=== PATIENT | female | born 1985 | race Caucasian/White ===

== ENCOUNTER 2016-10-06 16:49 | Emergency (ER) | payer BC, OTHER ==
[~2016-10-06] VITALS: Ht 165.1 cm; Wt 90.0 kg
[2016-10-06 16:53] VITALS: Ht 165.1 cm; Wt 90.0 kg
[2016-10-06] MEDS ORDERED: KETOROLAC 30 MG INJ IM STA (17:18)
[2016-10-06] MEDS ORDERED: DIAZEPAM 2 MG TAB PO ONE (17:30)
--- NOTE | 2016-10-06 17:34 | ERD ---
ER Documentation Chief Complaint Date/Time DATE: 10/06/16 TIME: 17:33 Chief Complaint Complains of lower back pain after a fall HPI Patient is a 31 year old female here with boyfriend who presents to the ED with low back pain x 1 day after sustaining a fall. She states that she was on the swing and fell and landed on her back. Denies hitting her head or blacking out or losing conscious. Denies vomiting or diarrhea. Denies fever chills. Denies bowel or bladder incontinence. States that the pain is located on the left side of her back and does not radiate. She is able to ambulate but has pain when she bends. No other complaints and has not taken any medication. ROS All systems reviewed and are negative except as per history of present illness. Medications Home Meds Active Scripts Orphenadrine Citrate (Norflex) 100 Mg Tablet.sa, 100 MG PO BID for 10 Days, TAB.SA Prov:NURA HARGROVE PA-C 10/06/16 Naproxen* (Naprosyn*) 500 Mg Tablet, 500 MG PO BID Y for PAIN AND/OR INFLAMMATION, #30 TAB Prov:NURA HARGROVE PA-C 10/06/16 Allergies Allergies: Coded Allergies: No Known Allergies (Verified Allergy, Unknown, 10/06/16) PMhx/Soc Medical and Surgical Hx: pt denies Medical Hx, pt denies Surgical Hx History of Surgery: No Anesthesia Reaction: No Hx Neurological Disorder: No Hx Respiratory Disorders: No Hx Cardiac Disorders: No Hx Psychiatric Problems: No Hx Miscellaneous Medical Probl: No Hx Alcohol Use: No Hx Substance Use: No Hx Tobacco Use: No Smoking Status: Never smoker Physical Exam Vitals Vital Signs Date Time Temp Pulse Resp B/P Pulse Ox O2 Delivery O2 Flow Rate FiO2 10/06/16 16:53 98.2 89 20 114/74 98 Physical Exam GENERAL: Well-developed, well-nourished female. Appears in no acute distress. HEAD: Normocephalic, atraumatic. EYES: Pupils are equally reactive bilaterally. EOMs grossly intact. No conjunctival erythema. ENT: Moist mucous membranes. No uvula deviation. No kissing tonsils. No exudates. NECK: Supple. No lymphadenopathy or thyromegaly. No meningismus. negative kernig. negative brudinski. LUNG: Clear to auscultation bilaterally. No rhonchi, wheezing, rales or coarse breath sounds. HEART: Regular rate and rhythm. No murmurs, rubs or gallops. ABDOMEN: No scars, ecchymosis or rashes noted. Soft, nontender, and nondistended. Positive bowel sounds in all four quadrants. No rebound tenderness , no guarding. (-) McBurneys point tenderness. No CVA tenderness. BACK: No midline tenderness. No spinal tenderness. Of her lower back with no erythema or ecchymosis or step-offs or deformities. No masses Extremities: Equal pulses bilaterally. No peripheral clubbing, cyanosis or edema. No unilateral leg swelling. NEUROLOGIC: Alert and oriented. Moving all four extremities. 5/5 strength in all extremities. Normal speech. unSteady gait. SKIN: Normal color. Warm and dry. No rashes or lesions. Capillary refill < 2 seconds Results 24 hrs Current Medications Medications (Trade) Dose Ordered Sig/Merrick Route PRN Reason Start Time Stop Time Status Last Admin Dose Admin Ketorolac Tromethamine (Toradol) 30 mg ONCE STAT IM 10/06/16 17:18 10/06/16 17:22 DC 10/06/16 17:36 Diazepam (Valium) 2 mg ONCE ONCE PO 10/06/16 17:30 10/06/16 17:31 DC 10/06/16 17:49 Procedures/MDM ER COURSE: I kept the patient and/or family informed of laboratory and diagnostic imaging results throughout the emergency room course. IMAGING STUDIES [place] [address] Radiology Main Line: [phone] DIAGNOSTIC IMAGING REPORT Patient: LEIGHA HARRISON : 1985 Age: 31 Sex: F MR #: [id number] DOS: 10/06/16 1718 Ordering MD: NURA HARGROVE PA-C Location: [facility] Room/Bed: PROCEDURE: XR Lumbar Spine. CLINICAL INDICATION: back pain s/p fall TECHNIQUE: AP and lateral view of the lumbar spine were obtained. COMPARISON: No prior studies are available for comparison. FINDINGS: There is normal vertebral mineralization. No fracture or subluxation is seen. There is disk space narrowing at L5-S1 with small anterior osteophytes. The posterior elements are unremarkable. The soft tissues appear normal. IMPRESSION: 1. No acute abnormalities are clearly seen. 2. Disk space narrowing at L5-S1 with small anterior osteophytes. RPTAT:AAJJ Kevin Montoya Physician Date Time Electronically viewed and signed by Kevin Motnoya Physician on 10/06/2016 18: 12 MC/ CC: NURA HARGROVE PA-C MEDICATIONS Toradol 30 mg IM. Valium 2 mg p.o. Tolerated well with no adverse reactions improvement in symptoms per MEDICAL DECISION MAKING: This is a 31-year-old female who presents with left back pain after sustaining an injury where she fell off of the swing. Vital signs were reviewed. Patient is afebrile. Patient is not hypoxic. Patient's x-rays of by radiologist unremarkable for fracture dislocation. I have low suspicion for compression fracture. Patient has muscle strain versus muscle sprain versus contusion. Low suspicion for cauda equine syndrome, spinal epidural hematoma, spinal epidural abscess, osteomyelitis, fracture, aortic dissection, AAA, pyelonephritis, nephrolithiasis, septic stone, obstructed stone. DISCHARGE: At this time, patient is stable for discharge and outpatient management with no new complaints during the ER course. Patient was sent home with Naprosyn and Norflex copy of imaging report and a note for work. Patient will be discharged home with instructions to recheck for new or worsening symptoms such as fever, nausea, weakness, LOC and to follow up with primary care in the next 1-2 days. Patient was advised to return to the ER for any new or worsening symptoms. Plan was discussed and patient and/or family understands and agrees. Home instructions were given. Departure Diagnosis: Primary Impression: Back pain Back pain location: low back pain Chronicity: acute Back pain laterality: left Sciatica presence: without sciatica Qualified Code: M54.5 - Acute left- sided low back pain without sciatica Condition: Stable NURA HARGROVE PA-C Oct 06, 2016 17:34
--- NOTE | 2016-10-06 18:12 | RADRPT ---
PROCEDURE: XR Lumbar Spine. CLINICAL INDICATION: back pain s/p fall TECHNIQUE: AP and lateral view of the lumbar spine were obtained. COMPARISON: No prior studies are available for comparison. FINDINGS: There is normal vertebral mineralization. No fracture or subluxation is seen. There is disk space narrowing at L5-S1 with small anterior osteophytes. The posterior elements are unremarkable. The soft tissues appear normal. IMPRESSION: 1. No acute abnormalities are clearly seen. 2. Disk space narrowing at L5-S1 with small anterior osteophytes. RPTAT:AAJJ Physician Fabian Date Time Electronically viewed and signed by Physician Fabian on 10/06/2016 18:12 /
[2016-10-06] MEDS ORDERED: ORPH100T PO (18:19)
[2016-10-06] MEDS ORDERED: NAPR-260 PO (18:19)
[2016-10-06 18:34] VITALS: BP 119/77; PULSE 70; RESP 16; TEMP 98.2
== END 2016-10-06 18:38 | disposition home or self-care (01) ==
LOC: FTE 16:49
DX: M54.5 Low back pain (principal)
CPT/HCPCS: 72100; 96372; 99284; J1885